=== PATIENT | male | born 1990 | race Caucasian/White ===

== ENCOUNTER 2020-11-03 15:38 | Emergency (ER) | payer OTHER, SELFPAY ==
[2020-11-03 15:40] VITALS: BP 141/71; PULSE 64; RESP 20; TEMP 36.9; O2SAT 100
[2020-11-03 15:57] VITALS: BP 141/71; PULSE 64; RESP 20; TEMP 36.9; O2SAT 100
--- NOTE | 2020-11-03 16:45 | ED.GENADULT ---
HPI - General Adult General Chief complaint: Upper Respiratory Infection Stated complaint: covid exposure Time Seen by Provider: 11/03/20 16:43 Source: patient and RN notes reviewed Mode of arrival: ambulatory Limitations: no limitations History of Present Illness HPI narrative: 30-year-old male presents with complaints of being exposed to COVID-19 3 days ago. Kenji reports sitting in [employer] restaurant for greater than 20 minutes with a family member who tested Positive for COVID-19 on November 02, 2020. Denies symptoms but wants a COVID-19 test. Denies cough or chest congestion. No Rhinorrhea and nasal congestion. Denies fevers. No nausea, vomiting, and abdominal pain. Tolerating po intake well. Denies chest pain, coughing up blood, facial pain, and rash. The patient reports he has not been diagnosed with COVID-19. The patient reports he is not waiting for the results of a COVID-19 lab test. The patient reports he does not have sweats, headaches, dizziness, weakness, myalgia, or fatigue. The patient reports he does not have a worsening cough. The patient reports he does not have any loss of smell or taste or diarrhea. Denies recent traveling. Kenji voices concerns for COVID-19 due to recent exposure. At this time, the patient is suspected of having COVID-19. Some parts of this dictation were generated by voice recognition software and may contain typographical and/or grammatical inaccuracies. Related Data Home Medications Medication Instructions Recorded Confirmed No Home Medications 11/03/20 11/03/20 Allergies Allergy/AdvReac Type Severity Reaction Status Date / Time No Known Allergies Allergy Verified 11/03/20 15:57 Review of Systems Review of Systems: Narrative: CONSTITUTIONAL: Denies fever, chills, sweats. Requesting a COVID-19 swab. EYES: Denies visual changes, redness, discharge. ENT: Denies rhinorrhea, congestion, sore throat, otalgia. CARDIOVASCULAR: Denies chest pain, palpitations, edema. RESPIRATORY: Denies wheezing, dyspnea, cough. GASTROINTESTINAL: Denies abdominal pain, nausea, vomiting, diarrhea. SKIN: Denies rash or itching. MUSCULOSKELETAL: Denies acute back pain, joint pain, myalgia. NEUROLOGIC: Denies numbness or focal weakness. PSYCHIATRIC: Denies anxiety or depression, ROSALES. All systems reviewed & are unremarkable except as noted in HPI and below. [facility] Past Medical History Medical History Cleft lip Smoker Surgical History Surgical History (Updated 11/03/20 @ 17:02 by ESTHER Mann) History of repair of congenital cleft palate Family History Family History (Updated 11/03/20 @ 17:03 by ESTHER Mann) Father , Related to GI problems GI problem Mother Calculus, kidney Hypertension Varices, esophageal Social History Social History (Updated 11/03/20 @ 17:05 by ESTHER Mann) Smoking packs per day: 1 Smoking cigarettes per day: 20.0 Years smoked: 19 Smoking pack-years: 19.00 Smoking status: Current every day smoker Tobacco type: cigarettes Second hand tobacco smoke exposure: No Alcohol intake: current Substance use: current Substance use type: marijuana Living arrangements: with family Occupation/Education: occupation Gender identity (if verbalized by the patient): Male Sexual Orientation (if Verbalized by the Patient): Straight or Heterosexual Comments At time of signature, agree with the nurse past medical, surgical, social, and family history. There is no relevant family history pertinent to the presenting complaint. Exam Narrative: Exam Narrative: GENERAL: This is a well-nourished, well-developed patient, in no apparent distress. Talks in full sentences and ambulates with steady gait without dyspnea. HEAD: Normocephalic, atraumatic. EYES: PERRL. Sclera clear/white. Vision is grossly intact. NOSE: External nose normal with no obvious nasal discharge, nares without redness or enlarg
[2020-11-04 16:35] LABS: SARS-CoV-2 RNA PCR Positive
== END 2020-11-03 17:13 | disposition home or self-care (01) ==
PROVIDERS: Emergency Provider Nurse Practitioner Family; PCP Internal Medicine
DX: U07.1 COVID-19 (principal); F17.210 Nicotine dependence, cigarettes, uncomplicated
CPT/HCPCS: 99213; C9803; G0463; U0003; U0005